=== PATIENT | female | born 1955 | race Caucasian/White ===

== ENCOUNTER 2017-06-03 20:08 | Emergency (ER) | payer BC ==
[~2017-06-03] VITALS: Ht 167.6 cm; Wt 99.8 kg
[~2017-06-03 20:08] MED LIST: AMOX1TAB61 PO; BUPR150T8 PO; DULO60CA6 PO; MELO15TA23 PO; MELO7.5T5 PO; METH10TA2 PO; OXYC-323 PO; Oxycodone Hcl/Acetaminophen PO; QUET200T4 PO; SILV20CR14 TP; TIGE50VI IV; WARF3TAB54 PO
--- NOTE | 2017-06-03 20:41 | PHYS DOC ---
Past Medical History Past Medical History: Fibromyalgia, Hypotension Additional Past Medical Histor: scoliosis Past Surgical History: Knee Replacement, Tonsillectomy Additional Past Surgical Histo: right femur emerald, neuro stimulator Additional Information: 4 cigs/day Alcohol Use: None Adult General Chief Complaint Chief Complaint: ABDOMINAL PAIN [facility] HPI Patient is a 62 year old female presents the ED complaining of abdominal pain 2 weeks. Patient states she thought she pulled a muscle because the pain started when she went to reach for something. States the pain went away but has since returned to her right upper quadrant. Describes the pain as sharp. Rates the pain as 8 out of 10. Associated symptoms include nausea. Pain is not worse after eating. Denies fever, vomiting, diarrhea, blood in stool, dysuria, hematuria, back pain, chest pain or shortness of breath. Review of Systems Review of Systems Constitutional: Denies fever or chills [] Eyes: Denies change in visual acuity, redness, or eye pain [] HENT: Denies nasal congestion or sore throat [] Respiratory: Denies cough or shortness of breath [] Cardiovascular: No additional information not addressed in HPI [] GI: Complains of abdominal pain. Denies vomiting, bloody stools or diarrhea [] : Denies dysuria or hematuria [] Musculoskeletal: Denies back pain or joint pain [] Integument: Denies rash or skin lesions [] Neurologic: Denies headache, focal weakness or sensory changes [] Endocrine: Denies polyuria or polydipsia [] All other systems were reviewed and found to be within normal limits, except as documented in this note. Current Medications Current Medications Current Medications Medications (Trade) Dose Ordered Sig/Mary Start Time Stop Time Status Last Admin Dose Admin Info (Do NOT chart on this entry -- for MONITORING) 1 each PRN DAILY PRN 06/03/17 21:30 06/03/17 23:44 DC Iohexol (Omnipaque 300 Mg/ml) 75 ml 1X ONCE 06/03/17 21:30 06/03/17 21:31 DC 06/03/17 21:14 75 ML Morphine Sulfate 4 mg 1X ONCE 06/03/17 20:45 06/03/17 20:46 DC 06/03/17 20:52 4 MG Ondansetron HCl (Zofran) 4 mg 1X ONCE 06/03/17 20:45 06/03/17 20:46 DC 06/03/17 20:52 4 MG Allergies Allergies Allergies Coded Allergies Type Severity Reaction Last Updated Verified No Known Drug Allergies 12/27/14 No Physical Exam Physical Exam Constitutional: Well developed, well nourished, no acute distress, non-toxic appearance. [] HENT: Normocephalic, atraumatic, bilateral external ears normal, oropharynx moist, no oral exudates, nose normal. [] Eyes: PERRLA, EOMI, conjunctiva normal, no discharge. [] Neck: Normal range of motion, no tenderness, supple, no stridor. [] Cardiovascular:Heart rate regular rhythm, no murmur [] Lungs & Thorax: Bilateral breath sounds clear to auscultation [] Abdomen: Bowel sounds normal, soft, MILD RUQ TENDERNESS, no masses, no pulsatile masses. [] Skin: Warm, dry, no erythema, no rash. [] Back: No tenderness, no CVA tenderness. [] Extremities: No tenderness, no cyanosis, no clubbing, ROM intact, no edema. [] Neurologic: Alert and oriented X 3, normal motor function, normal sensory function, no focal deficits noted. [] Psychologic: Affect normal, judgement normal, mood normal. [] Current Patient Data Vital Signs Vital Signs Date Time Temp Pulse Resp B/P (MAP) Pulse Ox O2 Delivery O2 Flow Rate FiO2 06/03/17 23:19 69 16 134/78 (96) 95 Room Air 06/03/17 20:28 98.5 98.5 Lab Values Laboratory Tests Test 06/03/17 20:26 06/03/17 20:30 Sodium Level 143 mmol/L (136-145) Potassium Level 4.0 mmol/L (3.5-5.1) Chloride Level 102 mmol/L (98-107) Carbon Dioxide Level 30 mmol/L (21-32) Anion Gap 11 (6-14) Blood Urea Nitrogen 17 mg/dL (7-20) Creatinine 0.9 mg/dL (0.6-1.0) Estimated GFR (Cockcroft-Gault) 63.7 BUN/Creatinine Ratio 19 (6-20) Glucose Level 87 mg/dL (70-99) Calcium Level 9.2 mg/dL (8.5-10.1) Total Bilirubin 0.3 mg/dL (0.2-1.0) Aspartate Amino Transferase (AST) 55 U/L (15-37) H Alanine Aminotransferase (ALT) 35 U/L (14-59) Alkaline Phosphatase 74 U/L (46-116) Total Protein 8.4 g/dL (6.4-8.2) H Albumin 3.6 g/dL (3.4-5.0) Albumin/Globulin Ratio 0.8 (1.0-1.7) L Lipase 215 U/L (73-393) White Blood Count 7.9 x10^3/uL (4.0-11.0) Red Blood Count 3.96 x10^6/uL (3.50-5.40) Hemoglobin 12.4 g/dL (12.0-15.5) Hematocrit 37.8 % (36.0-47.0) Mean Corpuscular Volume 95 fL (79-100) Mean Corpuscular Hemoglobin 31 pg (25-35) Mean Corpuscular Hemoglobin Concent 33 g/dL (31-37) Red Cell Distribution Width 15.5 % (11.5-14.5) H Platelet Count 236 x10^3/uL (140-400) Urine Collection Type Unknown Urine Color Margarette Urine Clarity Clear Urine pH 6.0 Urine Specific [place] >=1.030 Urine Protein Negative mg/dL (NEG-TRACE) Urine Glucose (UA) Negative mg/dL (NEG) Urine Ketones (Stick) Trace mg/dL (NEG) Urine Blood Moderate (NEG) Urine Nitrite Negative (NEG) Urine Bilirubin Small (NEG) Urine Urobilinogen Dipstick 0.2 mg/dL (0.2 mg/dL) Urine Leukocyte Esterase Moderate (NEG) Urine RBC 6-10 /HPF (0-2) Urine WBC 5-10 /HPF (0-4) Urine Squamous Epithelial Cells Few /LPF Urine Bacteria Few /HPF (0-FEW) Urine Mucus Slight /LPF Troponin I Quantitative < 0.017 ng/mL (0.000-0.055) Laboratory Tests 06/03/17 20:30 Laboratory Tests 06/03/17 20:26 EKG EKG []NSR at 70 BPM. No STEMI. No acute changes. Radiology/Procedures Radiology/Procedures PROCEDURE: ABDOMEN LTD Clinical History: Right upper quadrant pain and tenderness Technique: Sonographic examination of the right upper quadrant of the abdomen was performed and multiple static images were obtained. Comparison: none Findings: The majority of the liver is visualized and appears homogeneous. There is however increased echogenicity liver which further limits ultrasound sensitivity for possible solid liver lesion. The common bile duct appears normal and measures 5 mm in diameter. The gallbladder is fairly distended and there are some sludge and tenderness but no wall thickening surrounding fluid or stones. The pancreas is not well visualized due to overlying bowel gas . The right kidney appears normal and measures 11 cm in length. Impression: 1. Sludge in the gallbladder. The gallbladder is borderline distended and there is tenderness over the gallbladder however this is nonspecific. Tenderness could be secondary to hepatitis. There is no wall thickening surrounding fluid or stones to suggest acute cholecystitis. 2. Increased echogenicity in the liver is likely fatty infiltration however hepatocellular disease is possible.[] PROCEDURE: CT ABD PELV W/ IV CONTRST ONLY CT SCAN OF THE ABDOMEN AND PELVIS WITH IV CONTRAST. History: Right upper quadrant pain and flank pain Comparison:None. Procedure: Contiguous axial images of the abdomen and pelvis were performed after the administration of 75 cc of Omni 300 IV contrast and without oral contrast. CT Abdomen with contrast: Findings: Liver: Unremarkable Spleen: Unremarkable Pancreas: Unremarkable Adrenal Glands: Unremarkable Kidneys: Unremarkable There is no mass or lymphadenopathy. There is no free air. There is no free fluid. The gallbladder is top normal limits in size but otherwise appears normal. CT Pelvis with Contrast: Findings: The urinary bladder appears normal. There is no free fluid. There is no lymphadenopathy. The appendix is normal. There is air and stool scattered throughout the colon. Impression: 1. Mild distention of the gallbladder without stones or inflammatory change could be incidental. 2. Constipation. Course & Med Decision Making Course & Med Decision Making Pertinent Labs and Imaging studies reviewed. (See chart for details) Discussed Labs and imaging with patient. Patient's pain improved. Vital stable, no acute distress. On reexamination, abdomen is soft nontender nondistended. No peritoneal signs. Tolerating PO. She states she is feeling much better. Discussed the importance of follow-up with GI early next week. Provided contact information/education. Discussed reasons to return to the ED. Patient understands and agrees with plan. Dragon Disclaimer Dragon Disclaimer This electronic medical record was generated, in whole or in part, using a voice recognition dictation system. Departure Departure Impression: Primary Impression: Abdominal pain Disposition: 01 HOME, SELF-CARE Condition: IMPROVED Referrals: CATHY GAMEZ MD (PCP) Patient Instructions: Cholecystitis, Cholelithiasis Scripts Hydrocodone/Apap 5-325 (NORCO 5-325 TABLET) 1 Each Tablet 1 TAB PO Q4-6HRS, #12 TAB Prov: EZEQUIEL CASTAÑEDA 06/03/17 EZEQUIEL CASTAÑEDA Jun 03, 2017 20:41
[2017-06-03 20:44] LABS: HEMATOCRIT 37.8 % (36.0-47.0); HEMOGLOBIN 12.4 g/dL (12.0-15.5); RED BLOOD COUNT 3.96 x10^6/uL (3.50-5.40); RED CELL DISTRIBUTION WIDTH 15.5 % (11.5-14.5); WHITE BLOOD COUNT 7.9 x10^3/uL (4.0-11.0)
[2017-06-03 20:45] LABS: BILIRUBIN,URINE SMALL (NEG); GLUCOSE,URINE NEGATIVE (NEG); NITRITE,URINE NEGATIVE (NEG); PROTEIN,URINE NEGATIVE (NEG-TRACE); UROBILINOGEN,URINE 0.2 mg/dL (0.2 mg/dL)
[2017-06-03] MEDS ORDERED: MORPHINE SULFATE 4 MG/ML DISP.SYRIN. IV ONE (20:45)
[2017-06-03] MEDS ORDERED: ONDANSETRON PF 4 MG/2 ML VIAL. IV ONE (20:45)
[2017-06-03 20:56] LABS: BACTERIA,URINE FEW /HPF (0-FEW); SQUAMOUS EPITHELIAL CELL,UR FEW /LPF
[2017-06-03 21:06] LABS: CALCIUM 9.2 mg/dL (8.5-10.1); CREATININE 0.9 mg/dL (0.6-1.0); GFR 63.7
[2017-06-03 21:13] LABS: ALBUMIN 3.6 g/dL (3.4-5.0); ALBUMIN/GLOBULIN RATIO 0.8 (1.0-1.7); TOTAL BILIRUBIN 0.3 mg/dL (0.2-1.0); TOTAL PROTEIN 8.4 g/dL (6.4-8.2)
[2017-06-03] MEDS ORDERED: IOHEXOL 300 MG/ML 100ML VIAL. IV ONE (21:30)
[2017-06-03] MEDS ORDERED: CONTRAST GIVEN MC PRN (21:30)
--- NOTE | 2017-06-03 21:42 | RAD ---
Clinical History: Right upper quadrant pain and tenderness Technique: Sonographic examination of the right upper quadrant of the abdomen was performed and multiple static images were obtained. Comparison: none Findings: The majority of the liver is visualized and appears homogeneous. There is however increased echogenicity liver which further limits ultrasound sensitivity for possible solid liver lesion. The common bile duct appears normal and measures 5 mm in diameter. The gallbladder is fairly distended and there are some sludge and tenderness but no wall thickening surrounding fluid or stones. The pancreas is not well visualized due to overlying bowel gas . The right kidney appears normal and measures 11 cm in length. Impression: 1. Sludge in the gallbladder. The gallbladder is borderline distended and there is tenderness over the gallbladder however this is nonspecific. Tenderness could be secondary to hepatitis. There is no wall thickening surrounding fluid or stones to suggest acute cholecystitis. 2. Increased echogenicity in the liver is likely fatty infiltration however hepatocellular disease is possible. Electronically signed by: Luis Jimenez III, MD (06/03/2017 9:39 PM) [facility]
--- NOTE | 2017-06-03 23:11 | RAD ---
CT SCAN OF THE ABDOMEN AND PELVIS WITH IV CONTRAST. History: Right upper quadrant pain and flank pain Comparison:None. Procedure: Contiguous axial images of the abdomen and pelvis were performed after the administration of 75 cc of Omni 300 IV contrast and without oral contrast. CT Abdomen with contrast: Findings: Liver: Unremarkable Spleen: Unremarkable Pancreas: Unremarkable Adrenal Glands: Unremarkable Kidneys: Unremarkable There is no mass or lymphadenopathy. There is no free air. There is no free fluid. The gallbladder is top normal limits in size but otherwise appears normal. CT Pelvis with Contrast: Findings: The urinary bladder appears normal. There is no free fluid. There is no lymphadenopathy. The appendix is normal. There is air and stool scattered throughout the colon. Impression: 1. Mild distention of the gallbladder without stones or inflammatory change could be incidental. 2. Constipation. End impression PQRS Compliance Statement: One or more of the following individualized dose reduction techniques were utilized for this examination: 1. Automated exposure control 2. Adjustment of the mA and/or kV according to patient size 3. Use of iterative reconstruction technique Electronically signed by: Luis Jimenez III, MD (06/03/2017 11:08 PM) [facility]
[2017-06-03 23:19] VITALS: BP 134/78
[2017-06-03] MEDS ORDERED: HYDR-971 PO (23:34)
--- NOTE | 2017-06-04 08:43 | RAD ---
AP chest 06/03/2017 Clinical indication: Epigastric pain. Comparison: 08/31/2016. Findings: Cardiac and mediastinal silhouettes are unremarkable. There are scattered areas of pleural-parenchymal scarring throughout both lungs. Right convexity thoracolumbar scoliosis. Multilevel thoracic spondylosis. Severe bilateral glenohumeral arthrosis. Impression: No acute cardiopulmonary abnormality.
--- NOTE | 2017-06-04 11:38 | EKG ---
[facility] [address] [place] [address] Test Date: 2017-06-03 Test Time: 20:49:37 Pat Name: TEMO ALLEN Department: Room: Gender: F [employer]: : [id number] Requested By: EZEQUIEL CASTAÑEDA Order Number: [id number] Reading MD: Measurements Intervals [place] Rate: 70 P: 45 NE: 190 QRS: -4 QRSD: 92 T: 94 QT: 424 QTc: 461 Interpretive Statements SINUS RHYTHM LEFTWARD AXIS T ABNORMALITY IN HIGH LATERAL LEADS ABNORMAL ECG RI6.01 No previous ECG available for comparison
== END 2017-06-03 23:41 | disposition home or self-care (01) ==
LOC: ER 20:08
DX: R10.11 Right upper quadrant pain (principal); R11.0 Nausea; M79.7 Fibromyalgia; I95.9 Hypotension, unspecified; M41.9 Scoliosis, unspecified; F17.210 Nicotine dependence, cigarettes, uncomplicated; Z96.659 Presence of unspecified artificial knee joint
CPT/HCPCS: 36415; 71010; 74177; 76705; 80053; 81001; 83690; 84484; 85027; 93005; 96374; 96375; 99285; J2270; J2405; Q9967

== ENCOUNTER → 2017-06-16 | Day surgery (SDC) | payer BC ==
[~2017-06-16] MED LIST changes: -AMOX1TAB61 PO; -BUPR150T8 PO; +DEXAMETHASONE SOD PHOS 20 MG/5 ML VIAL.; -DULO60CA6 PO; +GLYCOPYRROLATE 1 MG/5 ML VIAL.; +HYDROmorphone 2 MG/ML VIAL IV; +IOHEXOL 300 MG/ML 100ML VIAL.; +LABETALOL 20 MG/4 ML DISP.SYRIN.; +LIDOCAINE 1% PF 2 ML VIAL. ID; +LIDOCAINE 2% PF Vial for OR 5 ML VIAL.; -MELO15TA23 PO; -MELO7.5T5 PO; -METH10TA2 PO; +MIDAZOLAM HCL/PF 2 MG/2 ML VIAL.; +MORPHINE SULFATE 2 MG/ML DISP.SYRIN. IV; +NEOSTIGMINE METHYLSULFATE 5 MG/5 ML SYRINGE.; +ONDANSETRON PF 4 MG/2 ML VIAL.; +ONDANSETRON PF 4 MG/2 ML VIAL. IV; -OXYC-323 PO; -Oxycodone Hcl/Acetaminophen PO; +PROCHLORPERAZINE 10 MG/2 ML VIAL. IV; +PROPOFOL 20 ML IV; -QUET200T4 PO; +ROCURONIUM 50 MG/5 ML VIAL.; +SEVOFLURANE 61 TO 120 MINUTES. IH; -SILV20CR14 TP; +SURGICEL HEMOSTAT 4X8 EACH.; -TIGE50VI IV; -WARF3TAB54 PO; +fentaNYL PF VIAL 100 MCG/2 ML VIAL; +fentaNYL PF VIAL 100 MCG/2 ML VIAL IV; +fentaNYL PF VIAL 250 MCG/5 ML VIAL
[2017-06-16] MEDS: IV RINGERS,LACTATED 1000ML 1,000 ML IV (07:21)
[2017-06-16] MEDS: BUPIVAC MPF-EPI 0.5%-1:200000 30 ML VIAL. (08:13)
[2017-06-16] MEDS: fentaNYL PF VIAL 100 MCG/2 ML VIAL IV ×2 (09:05→09:30)
[2017-06-16] MEDS: oxyCODONE/APAP 5/325 1 TAB TABLET PO (09:45)
== END | disposition home or self-care (01) ==
LOC: SURG 06:38
DX: K81.1 Chronic cholecystitis (principal); Z90.89 Acquired absence of other organs; Z86.718 Personal history of other venous thrombosis and embolism; M19.90 Unspecified osteoarthritis, unspecified site; Z96.653 Presence of artificial knee joint, bilateral; F17.200 Nicotine dependence, unspecified, uncomplicated
CPT/HCPCS: 47562; 88304; J0690; J1100; J2250; J2405; J2704; J2710; J3010; J3490; J7030; Q9967